=== PATIENT | male | born 1940 | race Caucasian/White ===

== ENCOUNTER 2016-12-22 11:45 | Observation (INO) | payer MEDICARE, OTHER ==
[~2016-12-22] VITALS: Ht 177.8 cm; Wt 105.8 kg
--- NOTE | ~2016-12-22 | HP ---
Unit #: [id number] #: [id number] Patient: GANGA VASQUEZ [id number] [facility] [address] [facility] [place] [facility]. [place], [place] [address] [id number] MR#: [id number] NAME: GANGA VASQUEZ ROOM: 325 Age: 76 Sex: M Admission Date: 12/22/2016 : 1940 Attending Physician: Alka Dutta M.D. Primary Care Physician: Lory Pink M.D. HISTORY AND PHYSICAL CHIEF COMPLAINT Weakness, diarrhea. HISTORY OF PRESENT ILLNESS The patient is a 76-year-old male with past medical history of atrial fibrillation, alcohol abuse, who presented to the emergency department for evaluation of the above. The patient is a poor historian. He states that he has been increasingly generally weak for about a week. He reports diarrhea with three to four bouts of nonbloody diarrhea within the past 24 hours. He denies any abdominal pain. No vomiting. No fever. No cough or cold symptoms. He states that he has had urinary frequency. He has had several falls with the last fall being this morning. He denies any loss of consciousness, no hitting his head. He was on an unknown antibiotic for an unknown reason. He states that the last dose was a few days ago. In the emergency department, initial pulse and blood pressure were 95 and 131 over 66 respectively. EKG shows atrial fibrillation with a rate of 100 beats per minute. Laboratory is essentially normal. He is being admitted to [facility] for evaluation and further treatment. PAST MEDICAL HISTORY Admission to [facility], June 27 through July 06, 2008, for atrial flutter with rapid ventricular response. He was seen by cardiology (Dr. Alcantara). He had a 2D echo that showed an ejection fraction of 55% with trace tricuspid regurgitation. The patient was in sinus rhythm at the time of discharge. There is not a discharge medication list. Per the patient, he was not discharged on anticoagulation. He has not seen a mattress inspector in followup. PAST SURGICAL HISTORY Hernia repair. SOCIAL HISTORY The patient lives alone. He walks with a walker. He quit smoking 30 years ago. When he was here in 2008, he went through alcohol withdrawal. He states that he no longer drinks heavy. He states that his last drink was about a week ago. His code status is a full code. FAMILY HISTORY Notable for his dad having throat cancer. Unit #: [id number] #: [id number] Patient: GANGA VASQUEZ ALLERGIES No known allergies. HOME MEDICATIONS None. REVIEW OF SYSTEMS A complete review of systems is negative except as indicated in the HPI. The patient denies ever having a cardiac catheterization. He denies ever having a stress test. He does have some wounds on his right lower extremity that he states are from "tripping over the walker." DIAGNOSTIC STUDIES LABORATORY: BNP is 41. Comprehensive metabolic panel notable for sodium of 132, chloride 99, glucose 113. Alkaline phosphatase 100, albumin 3.1, lipase 22. INR 1.1. Complete blood count is notable for MCV of 97. Troponin is less than 0.05. Urinalysis is essentially negative. IMAGING: Chest x-ray shows nothing acute. CARDIOVASCULAR: EKG shows atrial fibrillation with rate of 100 beats per minute. PHYSICAL EXAMINATION VITAL SIGNS: Temperature is 98, pulse 95, respirations 18, blood pressure 131/66, oxygen saturation 95% on room air. GENERAL: The patient is a male who is awake and alert in no acute distress. HEENT: The head is atraumatic. Mucous membranes are moist. NECK: Supple. Trachea is midline. CARDIOVASCULAR: Irregular. LUNGS: Clear to auscultation bilaterally with no increased work of breathing. ABDOMEN: Soft, nontender with bowel sounds present in all four quadrants. GENITOURINARY: The patient has erythema involving the inguinal areas and inner aspect of the thighs bilaterally consistent with candidal intertrigo. EXTREMITIES: The lower extremities are nontender with no pedal edema. SKIN: Demonstrates the previously described abnormalities involving the inguinal area. Additionally, the patient has an eschar on the right lower extremity as well as on a toe of the right foot. He does have 2+ dorsalis pedis pulse. NEUROLOGIC: The patient is oriented x3. He is unable to tell me the exact date but knows it is December 2016. He is moving all extremities. PSYCHIATRIC: Mood and affect are normal. The patient is cooperative. SKIN: Demonstrates the previously described abnormalities. ASSESSMENT The patient is a 76-year-old male with: 1. General weakness. 2. Diarrhea: The patient was on an unknown antibiotic within the past week. 3. Atrial fibrillation: The patient was noted to have an atrial fibrillation thought to paroxysmal in 2008. It is unclear if he was discharged home on anticoagulation. He has not followed up with cardiology and is not currently taking any type of anticoagulation. Rate is currently 100. 4. Candidal intertrigo. 5. Right lower extremity wounds. Unit #: [id number] #: [id number] Patient: GANGA VASQUEZ 6. Remote history of alcohol abuse. 7. Former smoker. PLAN 1. Admit for observation to intermediate level. 2. Healthy heart diet if passes bedside swallow. 3. Normal saline at 75 mL/hr. 4. Bed rest. 5. Fall precautions. 6. PT/OT to evaluate and treat. 7. TSH, B12, and folate. 8. Neuro checks. 9. Stool studies including ova and parasites, Clostridium difficile, culture and sensitivity. 10. A 2D echo for further evaluation of atrial fibrillation. 11. Serial cardiac enzymes. 12. Lovenox 1 mg/kg subcutaneous q.[address] Tovar' recommendations. 13. Check magnesium level. 14. Consult Dr. Tovar regarding atrial fibrillation. 15. Monitor heart rate closely. 16. Nystatin powder to inguinal areas b.i.d. 17. Wound care consult regarding leg wounds. 18. Repeat labs in the morning. 19. Additional workup and consultants based on above. Dictated by Estephania Cavazos/gabriela TD: 12/22/2016 17:21 JOB #: [id number] HISTORY AND PHYSICAL Page 1 of 1 X Alka Dutta MD X HISTORY AND PHYSICAL
--- NOTE | ~2016-12-22 | DS ---
Unit #: [id number] #: [id number] Patient: GANGA VASQUEZ [id number] [address] [address] [id number] I MR#: [id number] NAME: GANGA VASQUEZ ROOM: 325 Age: 76 Sex: M Admission Date: 12/22/2016 : 1940 Discharge Date: 12/25/2016 Attending Physician: Jeremias Theodore M.D. Primary Care Physician: Lory Pink M.D. DISCHARGE SUMMARY DIAGNOSES ON ADMISSION 1. Diarrhea. 2. Weakness. DIAGNOSES ON DISCHARGE 1. Diarrhea, improved. 2. Hypertension. 3. Paroxysmal atrial fibrillation. 4. Debility. 5. History of falls. 6. Alcohol abuse. CONSULTATIONS Dr. Tovar in pulmonary consultation. LABD AND PROCEDURES DONE 1. The patient's creatinine is 0.8, sodium 136, potassium is 4.0. 2. WBC is 4.8, hemoglobin is 13.7, platelet count is 142. 3. Chest x-ray did not reveal any active disease. 4. Vitamin B12 level was 406, folic acid level was normal, TSH was 1.43, BNP was 41. 5. 2D echocardiogram revealed ejection fraction of 55 to 60%. There was impaired LV relaxation present. There was mild tricuspid regurgitation present. HOSPITAL COURSE [id number] male was admitted to the hospital with generalized weakness and diarrhea. Details are as per admission H and P. Patient is feeling much better. The diarrhea has resolved. Patient was seen by Physical Therapy who recommended subacute rehab. Patient was also seen by Cardiology who has started patient on Xarelto because of his atrial fibrillation. Patient will be transferred to rehab today. PHYSICAL EXAMINATION VITAL SIGNS: On physical examination vital signs reveal a temperature of 98.5, pulse is 84 per minute, respiratory rate is 14 per minutes. Blood pressure is 94/63 but the patient's pulse is irregularly irregular. RESPIRATORY: Examination revealed decreased breath sounds bilaterally. There are no wheezes or crackles. HEART: Is irregularly irregular, S1 and S2. ABDOMEN: Is soft, nontender. Bowel sounds are present in all four quadrants. Unit #: [id number] #: [id number] Patient: GANGA VASQUEZ NEUROLOGICALLY: Patient is alert to person, place and time. Power is 5/5 bilaterally. Sensations are grossly intact. SKIN: Is warm and dry. RECOMMENDATIONS ON DISCHARGE 1. Condition is stable. 2. Activity as tolerated. 3. Medications are: a. Tylenol 650 mg p.o. q.6 hours p.r.n. b. Xarelto 20 mg p.o. every morning. c. Cardizem CD 120 mg p.o. daily. d. Lopressor 12.5 mg p.o. b.i.d. e. Enteric coated aspirin 81 mg p.o. daily. DISPOSITION Patient will be transferred to rehab facility. The plan was discussed in detail with patient who showed complete understanding. Dictated by... Estephania Barrios/ryan TD: 12/25/2016 17:23 JOB #: [id number] CC: Ravindra Tovar M.D. DISCHARGE SUMMARY Page 1 of 1 X Jeremias Theodore MD X DISCHARGE SUMMARY
--- NOTE | ~2016-12-22 | CR72 ---
[facility] A Service of [facility] RADIOLOGY TEXT RESULTS PATIENT: GANGA VASQUEZ LOCATION: [facility] 325- : 42 UNIT #: [id number] AGE: [address]: Alka Dutta MD SEX: M ORDER DR: [id number] [facility] [address] [facility]. [place], [place] [address] [id number] MR#: [id number] Acc #: [id number] NAME: GANGA VASQUEZ : 1940 SEX: M STUDY DATE/TIME: 12/22/2016 12:24 UNIT: [address] ROOM: [facility] STUDY DESCRIPTION: CR Chest Single View Portable Attending Physician: Alka Dutta M.D. Ordering Physician: Ricarda Su M.D. Primary Care Physician: Lory Pink M.D. MEDICAL IMAGING REPORT This report is preliminary unless electronic signature is present EXAM Portable chest, 12/22/16 COMPARISON STUDIES 07/05/15 HISTORY Shortness of air starting today. FINDINGS A portable view of the chest was obtained. The heart size and vascularity are normal. The lungs are clear. The bones are unremarkable. IMPRESSION No active disease. Dictated by... Ten Wakefield M.D. THIS IS AN ELECTRONICALLY VERIFIED REPORT Ten Wakefield M.D. at 12/23/2016 7:08 AM MARE/mahamed TD: 12/22/2016 20:53 JOB #: [id number] MEDICAL IMAGING REPORT Page 1 of 1 COPY
--- NOTE | ~2016-12-22 | A ---
[facility] Nutrition Therapy DATE: 12/23/16 Patient: GANGA VASQUEZ Physician: MEHDI Address: [address] Room/Bed: [address] [place] [address], Zip: [place] [address] Admit Date: 12/22/16 Date of : 42 Height: 5 10 Weight: 234 106.4 NUTRITIONAL ASSESSMENT: REASON: ONE NUTRITION RISK PT RE: PRESSURE ULCER/NON-HEALING WOUND PT IS 76 Y.O. MALE ADMITTED FOR WEAKNESS PMH: AFIB, ARTHRITIS, HERNIA REPAIR, ETOH ABUSE, ESOPHAGEAL VARICES Anthropometrics: 5'10", WT: 215# (98 KG), BMI: 30.8 Labs: CA++:8.2, ALB: 2.7, NA+:134 Meds: NACL I/O & Bowel function: 840/4 Skin Integrity: (R) LOWER EXTREMITY WOUNDS, ?(R) ANKLE WOUND EDEMA: PEDAL TRACE Estimated Nutrition Needs: INCREASED PROTEIN NEEDS 2' SKIN BREAKDOWN Assessment: CHART REVIEWED AND EVENTS NOTED. PT SEEN FOR ONE NUTRITION RISK PT RE: PRESSURE ULCER. PT REPORTS FAIR/GOOD PO INTAKE AND APPETITE, NOTING NO C/O N/V/D. PT REPORTS CONSUMING ~2 MEALS DAILY AT HOME. PT ADDS "I REALLY HAVE NEVER BEEN A BIG EATER". PT DENIES ANY RECENT WEIGHT LOSS. PER [place], PT WEIGHED ~242# BACK IN 2008. THIS RD ENCOURAGED ADEQUATE KCAL, PROTEIN AND FLUID INTAKE TO PROMOTE SKIN HEALING, PT AGREED TO ENSURE SHAKES, RD WILL ORDER. WOUND CARE CONSULTED TO FOLLOW. RD TO FOLLOW HOSPITAL COURSE. SEE RECOMMENDATIONS BELOW. Dx: INCREASED PROTEIN NEEDS R/T SKIN BREAKDOWN AEB (R) LOWER EXTREMITY WOUNDS, ?(R) ANKLE WOUND. Intervention: 1. HEALTHY HEART DIET 2. ENSURE SHAKES BID Monitoring, Evaluation and Goals: 1. ORAL INTAKE; CONSUME/TOLERATE >50% OF MEALS AND SUPPLEMENTS 2. WEIGHTS; PROMOTE GRADUAL WEIGHT LOSS TOWARDS HEALTHY BMI 3. SKIN; PROMOTE SKIN HEALING MONITOR: PER PROTOCOL, CRITERIA TO DETERMINE WHETHER ABOVE GOALS ARE MET Recommendations: [facility] Nutrition Therapy DATE: 12/23/16 Patient: GANGA VASQUEZ Physician: MEHDI Address: [address] Room/Bed: [address] [place] [address], Zip: [place] [address] Admit Date: 12/22/16 Date of : 42 Height: 5 10 Weight: 234 106.4 1. PLEASE ORDER VANILLA ENSURE SHAKES BID W/MEALS FOR ADDITIONAL PROTEIN, FLUID AND KCAL 2. PLEASE ADD MVI W/MINERAL DAILY TO PROMOTE SKIN HEALING 3. ENCOURAGE PROTEIN SOURCES RD WILL F/U PER PROTOCOL PT IS MILDLY COMPROMISED Respectfully, SHANNA MARY MS, RD, LD [employer] cc: client file
--- NOTE | ~2016-12-22 | EKG ---
PATIENT: GANGA VASQUEZ UNIT #: [id number] Ventricular Rate: 100 BPM Atrial Rate: 101 BPM QRS Duration: 84 ms Q-T Interval: 360 ms QTC Calculation(Bezet): 464 ms Calculated R [place]: 20 degrees Calculated T [place]: 41 degrees Diagnosis Line: Atrial fibrillation Diagnosis Line: Abnormal ECG Diagnosis Line: No previous ECGs available Diagnosis Line: Confirmed by BREE ISLAS MD ([id number]) on Diagnosis Line: 12/22/2016 2:12:25 PM INTERPRETING MD: JANEL DONNELLY
--- NOTE | ~2016-12-22 | CO ---
Unit #: [id number] #: [id number] Patient: GANGA VASQUEZ [id number] [address] [place], [place] [address] [id number] MR#: [id number] NAME: GANGA VASQUEZ ROOM: 325 Age: 76 Sex: M Admission Date: 12/22/2016 : 1940 Attending Physician: Alka Dutta M.D. Primary Care Physician: Lory Pink M.D. Consultation Date: 12/22/2016 CONSULTATION REPORT REASON FOR CONSULTATION Atrial fibrillation. 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 Most of his history has been obtained from previous hospital records. The patient, himself, is a poor historian. In June of 2008, EKG showed documentation of atrial fibrillation and conversion into sinus rhythm. Also in 2008, he had a 2D echocardiogram which showed an EF of 50-55% with trace TR and MA. He did not have a cardiac catheterization or stress test at that time. In 2008 he was admitted for alcohol use withdrawal and sepsis of Kleb bacteremia and a UTI. Additional past medical history includes alcohol use, esophageal varices, arthritis, hernia repair, and he is a reformed smoker. Patient presented to the emergency department with complaints of diarrhea for one week, weakness, falls and right lower extremity wound. The patient states that he has not drank any alcohol for the past week. He denies any fever, vomiting, chest pain, shortness of air or loss of consciousness. He denies any hematochezia or hemoptysis. He also denies any palpitations. He, again, is a poor historian. In the emergency department, the patient had an EKG done which showed atrial fibrillation with a rate of 100 beats per minute. His point of care troponin was negative. He has been admitted for generalized weakness and diarrhea. PAST MEDICAL HISTORY 1. 2008 EKG show paroxysmal atrial fibrillation conversion into sinus rhythm. 2. In 2008 2D echocardiogram shows an EF of 50-55% with trace TR and MA. 3. Patient has not had a cardiac catheterization or stress test. 4. 2008 history of sepsis from Klebsiella bacteremia and UTI. 5. Alcohol use. 6. Esophageal varices. 7. Hernia repair. 8. Arthritis. 9. Reformed smoker. He reports that he quit smoking over 40 years ago. PAST SURGICAL HISTORY Hernia repair. ALLERGIES Unit #: [id number] #: [id number] Patient: GANGA VASQUEZ No known allergies. HOME MEDICATIONS Patient states that he occasionally takes an aspirin and Aleve. Dosages unknown. FAMILY HISTORY Medically noncontributory. SOCIAL HISTORY Patient denies tobacco abuse. He states he quit smoking approximately 40 years ago. Denies any illicit drug abuse. He states that he drinks alcohol 1-2x a week and typically drinks a 6-pack of beer. He uses a walker at home and endorsed that he has been having multiple falls that have been ongoing. REVIEW OF SYSTEMS A 10-point review of systems has been done and is considered otherwise negative unless indicated in the HPI. PHYSICAL EXAMINATION GENERAL: Patient is awake, in no acute distress and looks disheveled. VITAL SIGNS: Temperature 98, heart rate 99, respirations 20, blood pressure 129/85. He is oxygenating 94% on room air. HEENT: Head is atraumatic, normocephalic. Pupils are equal, round and reactive. Extraocular movements are intact. No drainage from ears or nares. NECK: Supple. Trachea is midline. Normal carotid upstrokes. CHEST: Lungs are diminished bilaterally. No wheezes, rales or rhonchi. CARDIOVASCULAR: Irregularly irregular. No murmurs, rubs or gallops are appreciated. ABDOMEN: Soft, nontender, nondistended. Bowel sounds are positive in all four quadrants. SKIN: Warm and dry. He does have some redness in his right ankle as well as a right ankle wound. EXTREMITIES: No clubbing or cyanosis. He has trace edema. NEUROLOGIC: Patient is alert and oriented x3 although he is a poor historian. Cranial nerves II-XII appear to be intact with no focal deficits. DIAGNOSTIC STUDIES CARDIOVASCULAR: EKG shows atrial fibrillation with a rate of 100 beats per minute. LABORATORY: White blood cells 7.5, hemoglobin 14.8, hematocrit 43.2, platelets 161, sodium 132, potassium 3.9, chloride 99, CO2 26, BUN 13, creatinine 1, glucose 113. Point of care troponin is less than 0.05. ASSESSMENT 1. Atrial fibrillation, duration unknown. 2. Diarrhea. 3. Generalized weakness. 4. Right lower extremity wounds. 5. Carlota. 6. Alcohol use. 7. Reformed smoker. Unit #: [id number] #: [id number] Patient: GANGA VASQUEZ 8. Chronic falls. At this time, cardiology has been consulted for atrial fibrillation. Will check a lipid panel and TSH in the morning. Patient will be started on aspirin 81 mg p.o. daily and metoprolol tartrate 12.5 mg p.o. b.i.d. and will hold for heart rate less than 60 or systolic blood pressure less than 100. An EKG will be performed in the morning. Care management, physical therapy and occupational therapy have been asked to treat and evaluate the patient. I have discussed this case with Dr. Dunlap. May need to consider a stress test in the future. However, at this time will defer and wait for the results of the 2D echocardiogram. Dictated by... Marleny Villavicencio A.P.R.N. for Javier Dunlap M.D. AM/gumaro TD: 12/23/2016 07:22 JOB #: [id number] CONSULTATION REPORT Page 1 of 1 X Marleny Villavicencio APRN X CONSULTATION REPORT
--- NOTE | ~2016-12-22 | EKG ---
PATIENT: GANGA VASQUEZ UNIT #: [id number] Ventricular Rate: 86 BPM Atrial Rate: 86 BPM QRS Duration: 88 ms Q-T Interval: 402 ms QTC Calculation(Bezet): 481 ms Calculated R [place]: 26 degrees Calculated T [place]: 26 degrees Diagnosis Line: Atrial fibrillation Diagnosis Line: Prolonged QT Diagnosis Line: Abnormal ECG Diagnosis Line: When compared with ECG of 22-DEC-2016 12:17, Diagnosis Line: No significant change was found Diagnosis Line: Confirmed by ABBE CARR MD ([id number]) on 12/23/2016 Diagnosis Line: 7:39:23 PM INTERPRETING MD: LILLY DONNELLY
[2016-12-22 12:33] LABS: URINE SOURCE CLEAN CATCH
[2016-12-22 12:46] LABS: URINE APPEARANCE CLEAR; URINE BILIRUBIN NEG (NEG); URINE BLOOD NEG (NEG); URINE COLOR YELLOW; URINE GLUCOSE NEG (NEG); URINE KETONE NEG (NEG); URINE LEUKOCYTE ESTERASE NEG (NEG); URINE NITRATE NEG (NEG); URINE PH 6.5 (5-8); URINE PROTEIN NEG (NEG); URINE SPECIFIC GRAVITY 1.007 (1.003-1.035)
[2016-12-22 12:53] LABS: CULTURE INDICATED? NO
[2016-12-22 13:23] LABS: POC - CKMB 1.4 ng/mL (0.0-7.9); POC - TROPONIN <0.05 ng/mL (<=0.05)
[2016-12-22 13:29] LABS: BASOPHIL# 0.1 X10e3 (0-0.3); DIFF IND NO; EOSINOPHIL# 0.1 X10e3 (0-0.7); EOSINOPHIL% 1.6 % (0.0-7.0); HEMATOCRIT 43.2 % (38.0-50.0); HEMOGLOBIN 14.8 gm/dL (13.0-16.0); LYMPHOCYTE# 0.6 X10e3 (1.0-3.5); MEAN CORPUSCULAR HEMOGLOBIN 33.2 PG (28-34); MEAN CORPUSCULAR HGB CONC 34.2 g/dL (30-36); MONOCYTE# 1.1 X10e3 (0-1.0); MONOCYTE% 14.5 % (3.0-12.0); NEUTROPHIL# 5.6 X10e3 (1.5-7.1); NEUTROPHIL% 74.9 % (40-75); PLATELET COUNT 161 X10e3 (140-420); RED BLOOD COUNT 4.46 X10e (3.90-5.60); RED CELL DISTRIBUTION WIDTH 14.7 % (11.0-15.5); WHITE BLOOD COUNT 7.5 X10e3 (4.0-10.5)
[2016-12-22 13:46] LABS: INR 1.1; PROTHROMBIN TIME (PATIENT) 11.9 SECONDS (10.0-11.7)
[2016-12-22 13:52] LABS: ALBUMIN SERUM 3.1 g/dL (3.5-5.0); BILIRUBIN, DIRECT 0.4 mg/dL (0.0-0.2); BILIRUBIN,INDIRECT 1.3 mg/dL (0.0-0.9); BILIRUBIN,TOTAL 1.7 mg/dL (0.2-2.0); CALCIUM SERUM 8.4 mg/dL (8.4-10.2); GLOM FILT RATE Estimated 73.8 mL/min (>60); POTASSIUM 3.9 mmol/L (3.5-5.1); PROTEIN TOTAL SERUM 7.2 g/dL (6.0-8.3)
[2016-12-22 16:02] LABS: POC - CKMB 1.3 ng/mL (0.0-7.9); POC - TROPONIN <0.05 ng/mL (<=0.05)
[2016-12-22] MEDS ORDERED: NO MEDICATIONS (18:22)
[2016-12-22 20:08] LABS: MB 2.8 ng/ml
[2016-12-23 04:44] LABS: HEMATOCRIT 41.2 % (38.0-50.0); HEMOGLOBIN 13.9 gm/dL (13.0-16.0); MEAN CORPUSCULAR HEMOGLOBIN 32.9 PG (28-34); MEAN CORPUSCULAR HGB CONC 33.9 g/dL (30-36); MEAN PLATELET VOLUME 6.9 FL (6.5-11.5); RED BLOOD COUNT 4.24 X10e (3.90-5.60); RED CELL DISTRIBUTION WIDTH 14.8 % (11.0-15.5); WHITE BLOOD COUNT 6.8 X10e3 (4.0-10.5)
[2016-12-23 04:54] LABS: INR 1.1; PROTHROMBIN TIME (PATIENT) 11.9 SECONDS (10.0-11.7)
[2016-12-23 04:59] LABS: %MB 2.6 % (0.0-4.0); MB 1.8 ng/ml
[2016-12-23 05:24] LABS: ALBUMIN SERUM 2.7 g/dL (3.5-5.0); BILIRUBIN,TOTAL 1.9 mg/dL (0.2-2.0); CALCIUM SERUM 8.2 mg/dL (8.4-10.2); GLOM FILT RATE Estimated 73.8 mL/min (>60); MAGNESIUM 1.8 mg/dL (1.6-3.0); POTASSIUM 3.9 mmol/L (3.5-5.1); PROTEIN TOTAL SERUM 6.2 g/dL (6.0-8.3)
[2016-12-24 09:07] LABS: HEMATOCRIT 39.8 % (38.0-50.0); HEMOGLOBIN 13.7 gm/dL (13.0-16.0); MEAN CELL VOLUME 96.5 FL (83-96); MEAN CORPUSCULAR HEMOGLOBIN 33.1 PG (28-34); MEAN CORPUSCULAR HGB CONC 34.3 g/dL (30-36); MEAN PLATELET VOLUME 6.9 FL (6.5-11.5); RED BLOOD COUNT 4.13 X10e (3.90-5.60); RED CELL DISTRIBUTION WIDTH 14.6 % (11.0-15.5); WHITE BLOOD COUNT 4.8 X10e3 (4.0-10.5)
[2016-12-24 09:41] LABS: CALCIUM SERUM 8.3 mg/dL (8.4-10.2); CREATININE SERUM 0.8 mg/dL (0.6-1.4)
== END 2016-12-25 21:00 | disposition other institution (70) ==
LOC: CED 11:45 → CEDOF 15:15 → C3A PCU 15:35 → CED 15:35 → C3A PCU 17:01 → CEDOF 17:01 → C3A PCU 12-23 07:33
PROVIDERS: Emergency Medicine; Family Medicine; Internal Medicine; Nurse Practitioner
DX: R19.7 Diarrhea, unspecified (principal); R53.1 Weakness; I10 Essential (primary) hypertension; I48.0 Paroxysmal atrial fibrillation; R53.81 Other malaise; Z91.81 History of falling; F10.10 Alcohol abuse, uncomplicated; Z79.01 Long term (current) use of anticoagulants; Z79.1 Long term (current) use of non-steroidal anti-inflammatories (NSAID); I51.7 Cardiomegaly; I08.3 Combined rheumatic disorders of mitral, aortic and tricuspid valves; I37.1 Nonrheumatic pulmonary valve insufficiency; Z87.891 Personal history of nicotine dependence; Z80.8 Family history of malignant neoplasm of other organs or systems
CPT/HCPCS: 71010; 80048; 80053; 80061; 80076; 81003; 82550; 82553; 82607; 82746; 83690; 83735; 83880; 84443; 84484; 85025; 85027; 85610; 93005; 93306; 94760; 94762; 96372; 97162; 97166; 97530; 97535; 99285; G0378; G8978-GP; G8979-GP; G8987-GO; G8988-GO; J1650